=== PATIENT | male | born 1995 | race Hispanic/Latino ===

== ENCOUNTER 2021-11-13 01:00 | Emergency (ER) | payer OTHER ==
[~2021-11-13] VITALS: Ht 170.2 cm; Wt 90.7 kg
[2021-11-13 01:06] VITALS: BP 127/83
== END 2021-11-13 01:46 | disposition home or self-care (01) ==
LOC: EDH 01:00
DX: F10.129 Alcohol abuse with intoxication, unspecified (principal); Y90.9 Presence of alcohol in blood, level not specified
CPT/HCPCS: 82948